=== PATIENT | female | born 1990 | race Caucasian/White ===

== ENCOUNTER 2024-11-17 10:21 | Outpatient (CLI) | payer MEDICAID, SELFPAY ==
--- NOTE | 2024-11-17 10:32 | XRR_ITS ---
PROCEDURE INFORMATION: Exam: XR Cervical Spine Exam date and time: 11/17/2024 10:38 AM Age: 34 years old Clinical indication: Neck pain; Additional info: M54.42 TECHNIQUE: Imaging protocol: Radiologic exam of the cervical spine. Views: 2 or 3 views. AP Lateral Odontoid 3 views COMPARISON: No relevant prior studies available. FINDINGS: Tubes, catheters and devices: None. Bones/joints: Cervical spinal straightening is demonstrated with lateral, sagittal imaging. Possible chronic finding or related to patient positioning, muscular spasm. The alignment of the vertebra appear otherwise unremarkable without dislocation. No visualized evidence for acute bony fracture or dislocation. Bony structures appear otherwise unremarkable. Soft tissues: Unremarkable. Lungs: Visualized aspects of the chest appear grossly unremarkable. Notes: If there is further concern or neurological abnormalities on clinical exam, MRI or CT of the cervical spine may be performed for complete assessment. XR/XR cervical spine 3V* [id number] IMPRESSION: Cervical spinal straightening is demonstrated with lateral, sagittal imaging. Possible chronic finding or related to patient positioning, muscular spasm.
--- NOTE | 2024-11-17 10:32 | XRR_ITS ---
PROCEDURE INFORMATION: Exam: XR Lumbosacral Spine Exam date and time: 11/17/2024 10:38 AM Age: 34 years old Clinical indication: Low back pain; Additional info: M54.42 TECHNIQUE: Imaging protocol: Radiologic exam of the lumbosacral spine. Views: 2 or 3 views. AP Lateral and Coned down lateral COMPARISON: No relevant prior studies available. FINDINGS: Tubes, catheters and devices: Surgical clips overlie the abdomen, visualized on the lateral view. Bones/joints: Limited evaluation without frontal view. Neutral lateral, flexion and extension views available. Normal alignment of the vertebra without dislocation or spondylolisthesis. The vertebral alignment is well preserved with lateral flexion and extension imaging. Mild generalized bony degenerative changes. Bony structures appear otherwise unremarkable. No visualized evidence for acute bony fracture or dislocation. Soft tissues: Unremarkable. Lungs: Visualized aspects of the chest appear grossly unremarkable. Notes: If there is further concern or neurological abnormalities on clinical exam, MRI or CT of the cervical spine may be performed for complete assessment. XR/XR lumbar spine f/e only [id number] IMPRESSION: 1. No acute findings. 2. Degenerative and postsurgical changes are demonstrated, as described above. 3. Limited assessment.
== END 2024-11-17 10:22 | disposition home or self-care (01) ==
LOC: RAD 10:28
PROVIDERS: PCP Nurse Practitioner; Visit Provider Nurse Practitioner
DX: M54.42 Lumbago with sciatica, left side (principal); M54.2 Cervicalgia; R93.7 Abnormal findings on diagnostic imaging of other parts of musculoskeletal system; M47.896 Other spondylosis, lumbar region
CPT/HCPCS: 72040; 72120

== ENCOUNTER 2024-12-03 13:26 | Outpatient (CLI) | payer MEDICAID, SELFPAY ==
--- NOTE | 2024-12-03 13:30 | MR_ITS ---
WS: [id number] MRI CERVICAL SPINE NONCONTRAST TECHNIQUE: Sagittal T1, T2 and STIR imaging. Axial T2, gradient, and fiesta imaging. CLINICAL INFORMATION: NECK PAIN/WEAKNESS OF LEFT UPPER EXTREMITY COMPARISON: None. FINDINGS: Straightening of the normal cervical lordosis. Prominent central disc protrusion C6-7 with indentation and flattening of the cervical cord. Moderate central canal stenosis at this level. Recommend spine surgery consultation. Smaller shallow central protrusions at C3-C4 and C4-C5. C2-C3: Mild facet arthropathy. C3-C4: Mild disc bulging with a shallow central protrusion. Mild facet arthropathy. Mild RIGHT greater than LEFT foraminal narrowing. C4-C5: Mild disc bulging with a shallow RIGHT paracentral protrusion and small annular fissure. Mild facet arthropathy. Mild LEFT greater than RIGHT foraminal narrowing. C5-C6: Mild disc bulge with a shallow central protrusion. Mild LEFT and no significant RIGHT foraminal narrowing. Mild facet arthropathy. C6-C7: Broad-based central disc protrusion with an annular fissure. Slight cranial caudal migration of disc material. Impingement on the central and RIGHT pericentral cervical cord with a small amount of myelomalacia. Mild LEFT greater than RIGHT bony foraminal narrowing. Uncovertebral joint hypertrophy. C7-T1: Mild RIGHT and no significant LEFT bony foraminal narrowing. Spinal canal is patent. Visualized brain stem structures: Normal. Prevertebral soft tissues: Normal. MR/MR cervical spin wo con* [id number] IMPRESSION: 1. Prominent central disc protrusion with slight cranial caudal migration at C 6-7 with indentation of the cervical cord. Moderate central canal stenosis. Tra ce myelomalacia in the cervical cord at this level. Recommend spine surgery con sultation. 2. Shallow central protrusions at C3-C4 and C4-C5. 3. Mild to moderate bony foraminal narrowing described above.
== END 2024-12-03 13:27 | disposition home or self-care (01) ==
PROVIDERS: PCP Nurse Practitioner; Visit Provider Nurse Practitioner
DX: M48.02 Spinal stenosis, cervical region (principal); R29.898 Other symptoms and signs involving the musculoskeletal system; M50.223 Other cervical disc displacement at C6-C7 level; R93.7 Abnormal findings on diagnostic imaging of other parts of musculoskeletal system; M47.892 Other spondylosis, cervical region; M50.31 Other cervical disc degeneration, high cervical region; M50.322 Other cervical disc degeneration at C5-C6 level; M89.38 Hypertrophy of bone, other site; M48.03 Spinal stenosis, cervicothoracic region; M50.321 Other cervical disc degeneration at C4-C5 level
CPT/HCPCS: 72141